=== PATIENT | female | born 1990 | race African-American/Black ===

== ENCOUNTER 2016-12-24 09:40 | Emergency (ER) | payer OTHER | END 2016-12-24 11:30 | disposition home or self-care (01) | LOC: CFTX 09:40 → CED 09:40 → CFTX 11:18 | DX: S05.02XA Injury of conjunctiva and corneal abrasion without foreign body, left eye, initial encounter (principal); X58.XXXA Exposure to other specified factors, initial encounter; Y92.9 Unspecified place or not applicable | CPT/HCPCS: 99283 ==